=== PATIENT | male | born 1985 | race Two or more races ===

== ENCOUNTER 2022-03-21 23:11 | Emergency (ER) | payer SELFPAY ==
[2022-03-21 23:21] VITALS: BP 105/73; PULSE 84; RESP 18; TEMP 99.7; BMI 33.9
[2022-03-21] MEDS ORDERED: IBUPROFEN 400 MG TABLET (FP) PO ONE (23:24)
== END 2022-03-21 23:36 | disposition home or self-care (01) ==
LOC: FER 23:11
DX: J02.9 Acute pharyngitis, unspecified (principal)
CPT/HCPCS: 87651; 99283-25